=== PATIENT | female | born 1950 | race Caucasian/White ===

== ENCOUNTER 2023-10-18 13:23 | Inpatient (IN) | payer MEDICARE, SELFPAY ==
--- NOTE | 2023-10-18 12:17 | HPS.HSE ---
Family Physician
-
Family Physician: Christopher Braswell, DO
Chief Complaint
-
rectal prolapse
History of Present Illness
73yo female admitted for a colonoscopy and bowel prep prior to surgery. Her main complaint is rectal prolapse. She went to the ER at [place] for the 'hemorrhoids' and was told that she has a rectal prolapse. The patient admits that there is tissue that
comes out 'all the time '. She admits to bleeding and mucus from the area particular in the last several weeks. She feels that it is getting worse. She feels that it started in May. The patient has no prior history of abdominal surgeries. She
admits to lack of bowel control and bowel accidents since May. She denies any history of constipation or straining or pelvic floor issues. No prior colonoscopies. Her bowel movements are daily 'every day all day '. Denies tissue coming from her
vagina. When it does come out she has a hard time pushing it back in. She has used sugar before. She has a history of back surgery but no abdominal surgery. On baby aspirin. Takes oxycodone for back issues. She is wheelchair-bound and has been this
way for 3 years. She cannot walk. Family history negative for colorectal issues.
Medical History
Past Medical History
Past Medical History: Reports HTN and Other (chronic pain, scoliosis, DM II, depression, anxiety, neuropathy, - May 2023)
Past Surgical History: Reports Orthopedic (closed reduction of b/l proximal tibia fractures, lumbar discectomy, right piriformis release, spinal stimulator implant)
Social History
Tobacco: Non-smoker
Alcohol: None
Drug: None
Family History
Family History: Not pertinent
Allergies / Home Medications
Allergies reflects when Allergies were last updated in [facility].
Home Medications with original date entered in [facility]
Allergy/Medication List:
Allergies:
Penicillin- swelling
Cipro- itching
Medications:
Aspirin 81(Aspirin) 81 MG Tablet Delayed Release 1 tablet Orally Once a day
Atorvastatin Calcium 80 MG Tablet 1 tablet Orally Once a day
Carvedilol 12.5 MG Tablet 1 tablet with food Orally Twice a day
Donepezil HCl 10 MG Tablet Disintegrating 1 tablet on the tongue and allow to dissolve at bedtime Orally Once a day
Januvia(SITagliptin Phosphate) 100 MG Tablet 1 tablet Orally Once a day
Lyrica(Pregabalin) 200 MG Capsule 1 capsule 1 to 3 hours before bedtime Orally Once a day
Magnesium 300 MG Capsule 1 capsule with a meal Orally Once a day
MiraLax Mix-In [place](Polyethylene Glycol 3350) 17 GM Packet 1 packet mixed with 8 ounces of fluid Orally Once a day
Morphine Sulfate 15 MG Tablet 1 tablet as needed Orally every 4 hrs
Norvasc(amLODIPine Besylate) 5 MG Tablet 1 tablet Orally Once a day
Oxycodone HCl 5 MG Tablet 1 tablet as needed Orally po bid prn
Pantoprazole Sodium 40 MG Tablet Delayed Release 1 tablet Orally Once a day
Pregabalin 200 MG Capsule 1 capsule 1 to 3 hours before bedtime Orally Once a day
Senokot(Sennosides) 8.6 MG Tablet 2 tablets at bedtime as needed Orally Once a day
Trintellix(Vortioxetine HBr) 5 MG Tablet 1 tablet Orally Once a day
Review of Systems
-
History Source: Patient
A 12 point ROS was completed and negative except as noted: Yes
Abdomen/GI: Reports Bloody Stools and Other (rectal prolapse, incontinence)
Physical Exam
Physical Exam
General: Well Developed and Well Nourished
HEENT: NormoCephalic and Anicteric
GI: Soft, Non Tender and Non Distended
Skin: Warm
Neuro: AO x 3
Laboratory Results
-
Laboratory results are ordered and pending
Data Reviewed
-
Old Records: Reviewed
Impression/Plan
-
IMPRESSION: 73yo female with rectal prolapse
PLAN:
1. Admit to medical surgical floor.
2. Clear liquids today, NPO at midnight. Start IVFs when NPO.
3. Colonoscopy tomorrow. OR on , 10/20/2023 for Altemeier Procedure. Bowel prep to start luanne.
4. OOB in wheelchair with PT.
5. Medical consult for medicine management, DM, HTN.
6. Case management for dispo planning.
7. CBC/BMP, PT/INR, type and screen ordered.
8. EKG prior to surgery.
[2023-10-18 13:57] LABS: % Basophils 1.6 % (0-2); % Eosinophils 1.8 % (0-6); % Immature Granulocytes 0.4 % (0-0.5); % Lymphocytes 19.4 % (20.5-51.1); % Monocytes 7.3 % (1.7-9.3); % Neutrophils 69.5 % (42.2-75.2); Absolute Basophils 0.1 10^3/uL (0-0.2); Absolute Eosinophils 0.1 10^3/uL (0-0.7); Absolute Lymphocytes 1.5 10^3/uL (1.2-3.4); Absolute Monocytes 0.6 10^3/uL (0.1-0.6); Absolute Neutrophils 5.5 10^3/uL (1.4-6.5); Hematocrit 42.7 % (37.0-47.0); Hemoglobin 14.8 g/dL (12.0-16.0); Mean Corp Hgb Conc. 34.7 g/dL (33.0-37.0); Mean Corpuscular Hgb 28.7 pg (27.0-31.0); Mean Corpuscular Volume 82.9 fL (81.0-99.0); Mean Platelet Volume 9.3 fL (7.4-10.4); Nucleated Red Blood Cells % 0 %; Platelet Count 321 10^3/uL (130-400); Red Blood Cell Count 5.15 10^6/uL (4.20-5.40); Red Cell Dist. Width 13.7 % (11.5-14.5); White Blood Cell Count 7.9 10^3/uL (4.8-10.8)
[2023-10-18 14:08] LABS: APTT 30.6 Sec (23.4-35.0); INR 1.03; PT 13.3 Sec (11.4-14.6)
[2023-10-18 14:14] LABS: Blood Urea Nitrogen 12 mg/dl (7-17); Calcium 9.9 mg/dl (8.4-10.2); Carbon Dioxide 24 mmol/L (22-30); Chloride 106 mmol/L (98-107); Glucose 109 mg/dl (70-99); Potassium 4.6 mmol/L (3.5-5.1); Sodium 136 mmol/L (135-145); eGFR > 60.00
[2023-10-18 14:28] LABS: Glycohemoglobin (HgbA1c) 6.2 % (4.0-5.6)
--- NOTE | 2023-10-18 14:31 | CON.HOSP ---
Addendum entered and electronically signed by Dora Renteria MD 10/18/23 18:00:
I saw and examined the patient.
The SYSTEM DISPATCHER or PA's note was reviewed and I agree with the note.
Comment:
73F Chronic Pain Scoliosis spinal stimulator implant chronic opiate use Hypotension on low dose Midodrine hx b/l tibia fractures s/p ORIF wheelchair bound past 3 years reported hx DM present for Rectal Prolapse repair direct admit as per CRS.�
Hospitalist service consulted to assist in medical mgmt.
Physical Exam
General: No pallor, cyanosis, or jaundice.
HEENT: Throat clear. PERRLA Normocephalic atraumatic
NECK: Supple. No JVD Carotid Bruits
RESPIRATORY: Lungs clear to auscultation. No crackles wheezes stridor
CVS: S1, S2 normal. RRR.� No murmur, rub or gallop.
ABDOMEN: Soft, non-tender. No distension. Hypoactive bowel sounds
EXTREMITIES: No peripheral cyanosis or edema.� Able to lift legs off bed
APPRAISAL ANALYST: AOx3.
#Rectal Prolapse
Mgmt. as per primary CRS
-Npo after midnight for Colonoscopy
-Surgical correction Prolapse planned for day after
#Chronic Pain
Cont home oral pain medication for today
Switch to Fentanyl patch tomorrow when NPO including meds as per Surgery
IV dilaudid prn
#reported hx DM
Not on diabetic medications for years
A1c appreciated 6.2 prediabetic
Ok to monitor off FS at this time
Can consider low dose sliding scale if significant hyperglycemia develops.
#Hypotension on scheduled midodrine
BP currently stable
Cont home po midodrine as able
IVF boluses prn SBP<90 or MAP <65
will consider escalated care if significant/symptomatic hypotension develops
Original Note:
Consultation
-
Date/Time Consultation Requested: October 18, 2023 at 13:46
Date/Time Consultation Performed: October 18, 2023 at 14:33
Requesting Provider: Indy Sigala PA-C
Performing Provider: Radha Guthrie PA-C for Dr. Dora Renteria
Reason for Consultation: Medical Management
Family Physician
-
Family Physician: Christopher Braswell DO
Chief Complaint
-
Medical Management
History of Present Illness
Patient is a 73 y/o female past medical history of chronic pain and hypotension who is presenting for a scheduled colonoscopy and repair fo rectal prolapse. Patient is maintained on MS Contin for her chronic pain. She notes she has not taken
diabetes medications for several years. Hospitalist group was consult for medical management.
Medical History
Past Medical History
Past Medical History: Reports Other
Additional Past Medical History:
Chronic Pain with Opioid Dependence
Chronic Hypotension
Diabetes Mellitus, Type II
Cognitive Impairment
Depression / Anxiety
Past Surgical History: Reports Other
Additional Past Surgical History:
Lumbar Discectomy
Spinal Stimulator Implant
Social History
Tobacco: Former Smoker
Family History
Family History: Reviewed & Not Pertinent
Allergies / Home Medications
Allergies reflects when Allergies were last updated in [facility].
Home Medications with original date entered in [facility]
Allergy/Medication List:
Allergies
Allergy/AdvReac Type Severity Reaction Status Date / Time
ciprofloxacin [From Cipro] Allergy Unknown Verified 08/29/21 17:23
Penicillins Allergy Anaphylaxis Verified 08/29/21 17:23
Home Medications
magnesium oxide 400 mg PO DAILY Supplement 08/29/21
pregabalin 200 mg capsule (Lyrica) 200 mg PO BID Neurological Condition #6 caps 09/01/21
atorvastatin 10 mg tablet 10 mg PO HS 10/18/23
donepezil 10 mg tablet 10 mg PO HS 10/18/23
midodrine 2.5 mg tablet 2.5 mg PO TID 10/18/23
morphine 15 mg tablet,extended release 15 mg PO BID Pain 10/18/23
oxycodone 5 mg tablet 5 mg PO Q4HPRN PRN moderate to severe pain 10/18/23
vortioxetine 5 mg tablet (Trintellix) 5 mg PO DAILY 10/18/23
Review of Systems
-
A 12 point Review of Systems was completed except as noted: Yes
Physical Exam
Physical Exam
General: Well Developed, Well Nourished and Comfortable
HEENT: Anicteric and Moist Mucous Membranes
Respiratory: Clear and Non Labored Respirations
Cardiac: S1/S2 and Regular Rhythm
GI: Soft and Non Tender
Rectal: Deferred by Provider
Musculoskeletal: No Clubbing and No Cyanosis
Skin: Warm and Dry
Neuro: Awake, Alert and Oriented
Psych: Calm
Laboratory Results
-
Laboratory Results
10/18/23 13:45
10/18/23 13:45
PT 13.3 Sec (11.4-14.6) 10/18/23 13:45
INR 1.03 10/18/23 13:45
APTT 30.6 Sec (23.4-35.0) 10/18/23 13:45
Data Reviewed
-
Lab Data: Labs Reviewed
Old Records: Reviewed
Impression / Plan
-
Rectal Prolapse
-Care as per Colorectal Surgery
-Patient will be NPO starting tomorrow morning for procedure
Chronic Pain with Opioid Dependence
-Give usual dose of Morphine ER this evening
-Start Fentanyl Patch tomorrow morning
-Use Dilaudid IV for breakthrough
-Resume oral meds when able
Chronic Hypotension
-Hold midodrine
-Monitor BP closely
Diabetes Mellitus, Type II
-Patient does not take any diabetes medications as outpatient
-Check HgbA1c
Cognitive Impairment
-Patient maintained on donepezil as outpatient
Depression / Anxiety
-Resume oral meds when able
DVT proph: SCDs
--- NOTE | 2023-10-18 14:35 | PTCARENOTE ---
Patient admitted from home for a colonoscopy prep and surgery on .She is alert and oriented x3.Patient is wheelchair bound.She is treated for chronic pain.Will start the prep as soon as ordered.The patient is in her bed with the call padilla in
reach.
[2023-10-18 15:05] VITALS: BP 101/55
[2023-10-18] MEDS: NULYTELY SOLUTION 4 LITERS PO (15:12)
[2023-10-18] MEDS: MS CONTIN (EXTENDED RELEASE) 15 MG PO (20:57)
[2023-10-18] MEDS: LYRICA 200 MG PO (20:57)
[2023-10-18] MEDS: ARICEPT 10 MG PO (21:55)
[2023-10-18] MEDS: LIPITOR 10 MG PO (21:55)
[2023-10-19] VITALS (7 sets, daily range): BP systolic 121–159; BP diastolic 59–82; BMI 24.8
[2023-10-19] MEDS: NSS 1000 IV ×2 (00:19→15:31)
--- NOTE | 2023-10-19 01:00 | PTCARENOTE ---
Patient completed Colyte prep at 00:20; patient now NPO; clear bowel movements began at 01:00.
[2023-10-19] MEDS: DILAUDID 0.25 MG IV (01:30)
[2023-10-19 06:40] LABS: Hematocrit 42.4 % (37.0-47.0); Hemoglobin 14.5 g/dL (12.0-16.0); Mean Corp Hgb Conc. 34.2 g/dL (33.0-37.0); Mean Corpuscular Hgb 28.8 pg (27.0-31.0); Mean Corpuscular Volume 84.1 fL (81.0-99.0); Red Blood Cell Count 5.04 10^6/uL (4.20-5.40); Red Cell Dist. Width 13.5 % (11.5-14.5); White Blood Cell Count 6.4 10^3/uL (4.8-10.8)
--- NOTE | 2023-10-19 07:01 | W.PN.HOSP.TC ---
Today's Communication/Plan
-
NPO colonoscopy today as per CRS
pain control
monitor bp
follow up repeat EKG
Assessment / Plan
Assessment / Plan
Physical Exam
General: No pallor, cyanosis, or jaundice.
HEENT: Throat clear. Normocephalic atraumatic. Some pupil asymmetry noted, right larger then left, reactive to light (patient reports b/l cataracts R worse than left) otherwise pupils not significantly dilated at this time
NECK: Supple. No JVD Carotid Bruits
RESPIRATORY: Lungs clear to auscultation. No crackles wheezes stridor
CVS: S1, S2 normal. RRR.� No murmur, rub or gallop.
ABDOMEN: Soft, non-tender. No distension. Hypoactive bowel sounds
EXTREMITIES: No peripheral cyanosis or edema.� Able to lift legs off bed
NAILER OPERATOR: AOx3
73F Chronic Pain Scoliosis spinal stimulator implant chronic opiate use Hypotension on low dose Midodrine hx b/l tibia fractures s/p ORIF wheelchair bound past 3 years reported hx DM present for Rectal Prolapse repair direct admit as per CRS.�
Hospitalist service consulted to assist in medical mgmt.
Rectal Prolapse
-Care as per Colorectal Surgery
-strict NPO for colonoscopy today as per CRS
Chronic Pain with Opioid Dependence
-Received usual dose of Morphine ER last evening
-agree CRS scheduled morphine IV while strict NPO, can consider switch to Fentanyl patch low dose
-Dilaudid IV prn
-Resume home oral pain meds when able
hx Chronic Hypotension on scheduled low dose midodrine at home
-Monitor BP
-midodrine does not appear necessary at this time.
-ordered home midodrine prn for now when oral meds permitted as per CRS
Reported hx Diabetes Mellitus, Type II
-Patient does not take any diabetes medications as outpatient
-HgbA1c appreciated 6.2 Prediabetic
-ok to monitor off routine FS at this time.
Cognitive Impairment
-Patient maintained on donepezil as outpatient
Depression / Anxiety
-Resume oral meds when able
-Iv ativan prn anxiety
initial EKG notes septal infarct age indeterminate
-no chest pain
-repeating EKG
DVT proph: SCDs
I spent a total of 50 minutes with the patient or on the floor. More than 50% of this time involved counseling and coordination of care.
Anticipated Discharge: > 48 hours
Subjective/Interval History
-
Date of Service: October 19, 2023
No acute distress resting comfortably in bed sleeping. Easily woken. Reports back pain 01/27. Denies nausea.
Objective Data
-
Labs:
Laboratory Results
10/19/23
06:18
WBC 6.4
Hgb 14.5
Hct 42.4
Plt Count Pending
Sodium Pending
Potassium Pending
Chloride Pending
Carbon Dioxide Pending
BUN Pending
Creatinine Pending
Glucose Pending
Calcium Pending
Vital Signs:
Vital Signs
Temp Pulse Resp BP Pulse Ox
97.9 F 51 16 159/70 98
10/19/23 01:20 10/19/23 01:20 10/19/23 01:20 10/19/23 01:20 10/19/23 01:20
I&O
10/18/23 10/19/23 10/20/23
06:59 06:59 06:59
Intake Total 3405 / 3405
Balance 3405 / 3405
[2023-10-19 07:03] LABS: Blood Urea Nitrogen 7 mg/dl (7-17); Calcium 9.4 mg/dl (8.4-10.2); Carbon Dioxide 22 mmol/L (22-30); Chloride 110 mmol/L (98-107); Glucose 96 mg/dl (70-99); Magnesium 2.1 mg/dl (1.6-2.3); Phosphorus 4.6 mg/dl (2.5-4.5); Potassium 4.1 mmol/L (3.5-5.1); Sodium 136 mmol/L (135-145); eGFR > 60.00
[2023-10-19] MEDS: LYRICA PO (07:22)
[2023-10-19] MEDS: MORPHINE SULFATE 2 MG IV ×4 (08:19→20:52)
--- NOTE | 2023-10-19 09:13 | WOUNDNOTE ---
R 2ND TOE (DORSAL)
--- NOTE | 2023-10-19 09:14 | WOUNDNOTE ---
R 2ND TOE (with photo flash)
--- NOTE | 2023-10-19 09:15 | WOUNDNOTE ---
[facility] RN note: Patient admitted with rectal prolapse. Patient lives with her son. She is wheelchair bound. She stated she gets herself into her wheelchair with a sliding board and that she has a foam chair cushion. Patient current with Uday CRAWFORD.
See H&P for complete history.
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 No purulence. Patient reports toe ulcer is improved
compared to before. She stated she regularly goes to [facility] wound care center. She stated her wound was previously treated with antibiotics. She thinks she's had the wound for almost 1 year. +Palpable pedal pulses. Trace-+1 LE edema. She
stated she wears Tubigrip at home. L heel red/scarred from previous ulcer. Coccyx/R buttocks with scar from a previous full thickness wound.
Appetite: currently NPO for colonoscopy today.
Pressure redistribution devices in place: [employer] Accumax. Patient turns herself in bed.
Plan: R 2nd toe dressing changed (patient stated honey gel and Band-Aide is the current wound care). Patient voided in bedpan. Marisa care given. Instructed patient pressure injury prevention measures. She stated she uses a heel boot in bed at home.
Heels off bed with air chair cushion. Patient declined soft heel relief boot. Updated MARIA GUADALUPE Alvarez re: R 2nd dorsal toe ulcer appearance with erythema. Indy view wound photo. Defer to Indy if x-ray R 2nd toe to r/t osteomyelitis wanted vs
follow up with her outpatient wound care center physician to manage. Patricia approved local wound care. Discussed with JOE Li.
Care plan to be updated and will follow as needed.
--- NOTE | 2023-10-19 09:16 | W.PN.UPDATE ---
Update Note
Progress Note Update
I saw patient at bedside this morning. She has had clear bowel movements since 1am. She has no complaints. She remains NPO for colonoscopy today.
--- NOTE | 2023-10-19 09:17 | WOUNDNOTE ---
Radha DE SOUZA
--- NOTE | 2023-10-19 09:17 | WOUNDNOTE ---
Radha DE SOUZA
--- NOTE | 2023-10-19 09:17 | WOUNDNOTE ---
R HEEL (with photo flash)
--- NOTE | 2023-10-19 12:38 | CM ---
Reviewed the chart notes and spoke with the patient at the bedside. The patient is scheduled for a colonoscopy today and for rectal prolapse repair tomorrow. The patient resides with her son in a one story home with a ramp to enter. The patient
is wheelchair bound. The patient has a walker, shower chair and grab bars in the home. The patient has had [facility] in the past and been to [facility] in the past. The patient confirmed her pharmacy of choice is the [facility].
[facility] continues to be available to patient/family and is monitoring medical plan for needs at discharge.
Plan: Discharge plans will depend on the patient's progress.
--- NOTE | 2023-10-19 13:26 | W.PN.UPDATE ---
Update Note
Progress Note Update
Colonoscopy complete. Diminished anal tone. Prep reasonable. One small benign appearing cecal polyp--removed. Clears today and npo after MN. OR tomorrow.
[2023-10-19 13:48] LABS: Glucose - Point of Care 114 mg/dl (70-99)
--- NOTE | 2023-10-19 14:21 | PTCARENOTE ---
Pt returned to 2S via stretcher, slid to bed with assistance from NSG staff. IVF infusing per order. Pt awake and alert, verbalized understanding of clear liquid diet for today and then NPO after midnight for sx tomorrow. Bed locked and in the
lowest position, safety maintained. Oriented to room and call padilla.
[2023-10-19] MEDS: LIPITOR 10 MG PO (20:51)
[2023-10-19] MEDS: LYRICA 200 MG PO (20:51)
[2023-10-19] MEDS: ARICEPT 10 MG PO (20:52)
[2023-10-20] VITALS (12 sets, daily range): BP systolic 121–140; BP diastolic 61–99
[2023-10-20] MEDS: MORPHINE SULFATE 2 MG IV ×6 (00:34→23:50)
[2023-10-20] MEDS: NSS 1000 IV ×3 (05:30→23:50)
--- NOTE | 2023-10-20 06:49 | W.PN.HOSP.TC ---
Today's Communication/Plan
-
NPO for rectal repair today as per primary CRS
BP stable, can consider converting home midodrine to prn when ready for discharge, vs discontinuing entirely
cont pain control
PT eval
Assessment / Plan
Assessment / Plan
Physical Exam
General: No pallor, cyanosis, or jaundice.
HEENT: Throat clear. Normocephalic atraumatic. Some pupil asymmetry noted, right larger then left, reactive to light (patient reports b/l cataracts R worse than left) otherwise pupils not significantly dilated at this time
NECK: Supple. No JVD Carotid Bruits
RESPIRATORY: Lungs clear to auscultation. No crackles wheezes stridor
CVS: S1, S2 normal. RRR.� No murmur, rub or gallop.
ABDOMEN: Soft, non-tender. No distension. Hypoactive bowel sounds
EXTREMITIES: No peripheral cyanosis or edema.� Able to lift legs off bed
MEDICAL REPRESENTATIVE: AOx3
73F Chronic Pain Scoliosis spinal stimulator implant chronic opiate use Hypotension on low dose Midodrine hx b/l tibia fractures s/p ORIF wheelchair bound past 3 years reported hx DM present for Rectal Prolapse repair direct admit as per CRS.�
Hospitalist service consulted to assist in medical mgmt.
Rectal Prolapse
-Care as per Colorectal Surgery
-colonoscopy completed 10/18 one 2 mm cecum polyp removed pathology result pending
-npo for rectal prolapse repair today 10/19 as per CRS
Chronic Pain with Opioid Dependence
-agree CRS scheduled morphine IV while strict NPO
-Dilaudid IV prn
-Resume home oral pain meds when able
hx Chronic Hypotension on scheduled low dose midodrine at home
-Monitor BP
-midodrine does not appear necessary at this time.
-ordered home midodrine prn for now when oral meds permitted as per CRS
-on discharge would consider changing home midodrine to prn as well vs discontinuing entirely
Reported hx Diabetes Mellitus, Type II
-Patient does not take any diabetes medications as outpatient
-HgbA1c appreciated 6.2 Prediabetic
-ok to monitor off routine FS at this time.
Cognitive Impairment
-Patient maintained on donepezil as outpatient
Depression / Anxiety
-Resume oral meds when able
-Iv ativan prn anxiety
initial EKG notes septal infarct age indeterminate
-no chest pain
-repeating EKG
DVT proph: SCDs
I spent a total of 50 minutes with the patient or on the floor. More than 50% of this time involved counseling and coordination of care.
Anticipated Discharge: 24 - 48 hours
Subjective/Interval History
-
Date of Service: October 20, 2023
No acute distress reports feeling well pain well controlled at this time. overall reports feeling well.
Objective Data
-
Labs:
Laboratory Results
10/20/23
06:18
WBC Pending
Hgb Pending
Hct Pending
Plt Count Pending
Sodium Pending
Potassium Pending
Chloride Pending
Carbon Dioxide Pending
BUN Pending
Creatinine Pending
Glucose Pending
Calcium Pending
Vital Signs:
Vital Signs
Temp Pulse Resp BP Pulse Ox
99.1 F 66 18 144/70 98
10/19/23 23:20 10/19/23 23:20 10/19/23 23:20 10/19/23 23:20 10/19/23 23:20
I&O
10/18/23 10/19/23 10/20/23
06:59 06:59 06:59
Intake Total 3405 / 3405 1859
Balance 3405 / 3405 1859
[2023-10-20 06:50] LABS: % Basophils 1.9 % (0-2); % Eosinophils 2.5 % (0-6); % Immature Granulocytes 0.4 % (0-0.5); % Lymphocytes 19.3 % (20.5-51.1); % Monocytes 10.3 % (1.7-9.3); % Neutrophils 65.6 % (42.2-75.2); Absolute Basophils 0.1 10^3/uL (0-0.2); Absolute Eosinophils 0.1 10^3/uL (0-0.7); Absolute Monocytes 0.5 10^3/uL (0.1-0.6); Absolute Neutrophils 3.4 10^3/uL (1.4-6.5); Hematocrit 38.5 % (37.0-47.0); Mean Corp Hgb Conc. 33.8 g/dL (33.0-37.0); Mean Corpuscular Hgb 28.5 pg (27.0-31.0); Mean Corpuscular Volume 84.4 fL (81.0-99.0); Mean Platelet Volume 9.6 fL (7.4-10.4); Nucleated Red Blood Cells % 0 %; Platelet Count 220 10^3/uL (130-400); Red Blood Cell Count 4.56 10^6/uL (4.20-5.40); Red Cell Dist. Width 13.4 % (11.5-14.5); White Blood Cell Count 5.1 10^3/uL (4.8-10.8)
[2023-10-20] MEDS: HEPARIN 5000 UNITS SC (07:09)
[2023-10-20] MEDS: NEURONTIN 600 MG PO (07:10)
[2023-10-20] MEDS: TYLENOL 1000 MG PO (07:10)
[2023-10-20 07:14] LABS: Blood Urea Nitrogen 4 mg/dl (7-17); Calcium 9.1 mg/dl (8.4-10.2); Carbon Dioxide 21 mmol/L (22-30); Chloride 110 mmol/L (98-107); Estimated Creatinine Clearance 81 ml/min; Glucose 95 mg/dl (70-99); Magnesium 1.9 mg/dl (1.6-2.3); Phosphorus 4.3 mg/dl (2.5-4.5); Potassium 3.6 mmol/L (3.5-5.1); Sodium 136 mmol/L (135-145); eGFR > 60.00
[2023-10-20] MEDS: LYRICA 200 MG PO ×2 (08:48→21:14)
--- NOTE | 2023-10-20 13:12 | CM ---
Reviewed the chart notes. Patient anticipated to go to OR for rectal prolapse repair today. CM continues to be available to patient/family and is monitoring medical plan for needs at discharge.
Plan: Discharge plans will depend on the patient's progress.
[2023-10-20] MEDS: MORPHINE SULFATE IV (13:13)
[2023-10-20 14:50] LABS: Glucose - Point of Care 146 mg/dl (70-99)
--- NOTE | 2023-10-20 14:56 | W.IMMPOSTOP ---
Addendum entered and electronically signed by Randy Fulton MD 10/20/23 15:02:
Patient's son, Garcia, updated via phone conversation.
Original Note:
Surgical Immed Post Op Note
-
Primary Surgeon: Carleen Fulton MD
Assisting Surgeon: Caleb Muir MD
Pre-op Diagnosis: 1) rectal prolapse 2) fecal incontinence
Post-op Diagnosis: same
Procedure Performed: 1) Altemeier procedure (perineal rectosigmoidectomy) 2) posterior levatoroplasty
Anesthesia Type: general plus local
Specimen / Cultures: rectum
Estimated Blood Loss: 25 cc
Complications: no immediate
Operative Findings: redundant rectosigmoid and weak anal sphincter
Paredes in bladder.
Will send back to med surg.
--- NOTE | 2023-10-20 16:01 | PTCARENOTE ---
Pt returned back to 2S in bed. Paredes catheter clean and intact, draining yellow urine. IVF infusing per order. Scheduled pain medication provided for chronic back pain. Pt with no other c/o pain at this time. Bed locked and in the lowest position,
safety maintained. Oriented to room and call padilla, son at bedside.
[2023-10-20] MEDS: ARICEPT 10 MG PO (21:14)
[2023-10-20] MEDS: LIPITOR 10 MG PO (21:14)
[2023-10-20] MEDS: ATIVAN 0.25 MG IV (21:37)
[2023-10-20] MEDS: NSS (PRESERVATIVE FREE) 0.125 ML IV (21:39)
[2023-10-21] MEDS: DILAUDID 0.25 MG IV (00:36)
[2023-10-21 03:15] VITALS: BP 103/53
[2023-10-21] MEDS: MORPHINE SULFATE 2 MG IV ×5 (03:58→21:25)
[2023-10-21 05:08] VITALS: BMI 22.7
[2023-10-21 06:31] LABS: % Basophils 0.2 % (0-2); % Immature Granulocytes 0.3 % (0-0.5); % Lymphocytes 5.4 % (20.5-51.1); % Monocytes 7.8 % (1.7-9.3); % Neutrophils 86.3 % (42.2-75.2); Absolute Lymphocytes 0.5 10^3/uL (1.2-3.4); Absolute Monocytes 0.7 10^3/uL (0.1-0.6); Absolute Neutrophils 7.7 10^3/uL (1.4-6.5); Hematocrit 38.1 % (37.0-47.0); Hemoglobin 12.7 g/dL (12.0-16.0); Mean Corp Hgb Conc. 33.3 g/dL (33.0-37.0); Mean Corpuscular Hgb 28.5 pg (27.0-31.0); Mean Corpuscular Volume 85.4 fL (81.0-99.0); Nucleated Red Blood Cells % 0 %; Platelet Count 231 10^3/uL (130-400); Red Blood Cell Count 4.46 10^6/uL (4.20-5.40); Red Cell Dist. Width 13.5 % (11.5-14.5); White Blood Cell Count 8.9 10^3/uL (4.8-10.8)
--- NOTE | 2023-10-21 06:58 | W.PN.HOSP.TC ---
Today's Communication/Plan
-
NPO/Diet as per CRS
pain control
PT eval
Assessment / Plan
Assessment / Plan
Physical Exam
General: No pallor, cyanosis, or jaundice.
HEENT: Throat clear. Normocephalic atraumatic. Some pupil asymmetry noted, right larger then left, reactive to light (patient reports b/l cataracts R worse than left) otherwise pupils not significantly dilated at this time
NECK: Supple. No JVD Carotid Bruits
RESPIRATORY: Lungs clear to auscultation. No crackles wheezes stridor
CVS: S1, S2 normal. RRR.� No murmur, rub or gallop.
ABDOMEN: Soft, non-tender. No distension. Hypoactive bowel sounds
EXTREMITIES: No peripheral cyanosis or edema.� Able to lift legs off bed
COLLEGE OR UNIVERSITY FACULTY MEMBER: AOx3
73F Chronic Pain Scoliosis spinal stimulator implant chronic opiate use Hypotension on low dose Midodrine hx b/l tibia fractures s/p ORIF wheelchair bound past 3 years reported hx DM present for Rectal Prolapse repair direct admit as per CRS.�
Hospitalist service consulted to assist in medical mgmt.
Rectal Prolapse
-Care as per Colorectal Surgery
-colonoscopy completed 10/18 one 2 mm cecum polyp removed pathology result pending
-s/p rectal prolapse repair 10/19
-NPO/diet as per CRS
Chronic Pain with Opioid Dependence
-agree CRS scheduled morphine IV while strict NPO
-Dilaudid IV prn
-Resume home oral pain meds when able
hx Chronic Hypotension on scheduled low dose midodrine at home
-Monitor BP
-midodrine does not appear necessary at this time.
-ordered home midodrine prn for now when oral meds permitted as per CRS
-on discharge would consider changing home midodrine to prn as well vs discontinuing entirely
Reported hx Diabetes Mellitus, Type II
-Patient does not take any diabetes medications as outpatient
-HgbA1c appreciated 6.2 Prediabetic
-ok to monitor off routine FS at this time.
Cognitive Impairment
-Patient maintained on donepezil as outpatient
Depression / Anxiety
-Resume oral meds when able
-Iv ativan prn anxiety
initial EKG notes septal infarct age indeterminate
-no chest pain
-repeating EKG
DVT proph: SCDs
I spent a total of 50 minutes with the patient or on the floor. More than 50% of this time involved counseling and coordination of care.
Anticipated Discharge: 24 - 48 hours
Subjective/Interval History
-
Date of Service: October 21, 2023
No acute distress reports feeling well. Denies new acute issues.
Objective Data
-
Labs:
Laboratory Results
10/21/23
05:01
WBC Pending
Hgb Pending
Hct Pending
Plt Count Pending
Sodium Pending
Potassium Pending
Chloride Pending
Carbon Dioxide Pending
BUN Pending
Creatinine Pending
Glucose Pending
Calcium Pending
Vital Signs:
Vital Signs
Temp Pulse Resp BP Pulse Ox
99.1 F 79 18 103/53 93
10/21/23 03:15 10/21/23 03:15 10/21/23 03:15 10/21/23 03:15 10/21/23 03:15
I&O
10/19/23 10/20/23 10/21/23
06:59 06:59 06:59
Intake Total 3405 / 3405 1860 / 1860 900 / 900
Output Total 900 / 900
Balance 3405 / 3405 1860 / 1860 0 / 0
[2023-10-21 07:00] VITALS: BP 113/64
[2023-10-21 07:07] LABS: Blood Urea Nitrogen 7 mg/dl (7-17); Calcium 9.2 mg/dl (8.4-10.2); Carbon Dioxide 20 mmol/L (22-30); Chloride 110 mmol/L (98-107); Estimated Creatinine Clearance 81 ml/min; Glucose 107 mg/dl (70-99); Magnesium 2.1 mg/dl (1.6-2.3); Phosphorus 4.5 mg/dl (2.5-4.5); Potassium 3.7 mmol/L (3.5-5.1); Sodium 138 mmol/L (135-145); eGFR > 60.00
[2023-10-21] MEDS: LYRICA 200 MG PO ×2 (08:24→21:25)
--- NOTE | 2023-10-21 10:00 | W.PN.CRS1 ---
Addendum entered and electronically signed by Jeanmarie Muir MD 10/21/23 10:55:
Correction to statement: *Hb 12.7 from 13.0
Original Note:
Today's Communication / Plan
-
clears
lovenox
OOB with PT
Assessment/Plan
-
POD#1 1) Altemeier procedure (perineal rectosigmoidectomy) 2) posterior levatoroplasty
1. Vitals and labs normal.
2. OOB with PT.
3. Continue hull until AM.
4. DVT prophylaxis: TEDS/SCDS, Lovenox added.
5. Pain control: Dilaudid 0.25mg IV q 4 PRN, Moprhine 2mg IV q4h, will convert to po home meds likely tomorrow if tolerating clears.
6. Appreciate hospitalist.
7. Advance diet to clears.
8. OR pathology pending.
Subjective Data
Procedure
10/20/2023- 1) Altemeier procedure (perineal rectosigmoidectomy) 2) posterior levatoroplasty
Subjective Data
Date of Service: October 21, 2023
Patient states she feels well. She denies nausea or vomiting. She is hungry. She has back pain which is chronic for her. She denies abdominal pain. She has no flatus or BMs yet.
Objective Data
-
Vital Signs
Temp Pulse Resp BP Pulse Ox
98.5 F 69 14 113/64 95
10/21/23 07:00 10/21/23 07:00 10/21/23 07:00 10/21/23 07:00 10/21/23 07:00
Intake & Output
10/20/23 10/21/23 10/22/23
06:59 06:59 06:59
Intake Total 1860 / 1860 900 / 900
Output Total 900 / 900
Balance 1860 / 1860 0 / 0
Intake:
Oral fluids 960 / 960
IV fluids (Total)
IV piggybacks 0 0
Output:
Urine, Hull
Other:
Number of approximated MODERATE 2
amounts of urine
Number of approximated LARGE 1
amounts of urine
Lab Results
10/21/23 05:01
10/21/23 05:01
Physical Exam
-
General: No Acute Distress and AOx3
Abdomen: Soft, Non Distended and Non Tender
Skin: Warm and Dry
[2023-10-21 11:00] VITALS: BP 132/68
[2023-10-21 11:29] VITALS: BP 132/68; PULSE 65
[2023-10-21] MEDS: NSS IV (12:40)
[2023-10-21 13:06] VITALS: BMI 22.7
[2023-10-21 15:00] VITALS: BP 109/55
--- NOTE | 2023-10-21 16:00 | CM ---
Reviewed the chart notes and spoke with the patient at the bedside. IMM signed and placed on chart. No needs anticipated.
Plan: Discharge to home when medically stable.
[2023-10-21] MEDS: LOVENOX 40 MG SC (18:02)
[2023-10-21] MEDS: TORADOL 15 MG IV (19:49)
[2023-10-21] MEDS: TYLENOL 650 MG PO (19:49)
[2023-10-21] MEDS: LIPITOR 10 MG PO (21:25)
[2023-10-21] MEDS: ARICEPT 10 MG PO (21:25)
[2023-10-21] MEDS: ATIVAN 0.25 MG IV (21:32)
[2023-10-21] MEDS: NSS (PRESERVATIVE FREE) 0.125 ML IV (21:33)
[2023-10-21 23:30] VITALS: BP 119/53
[2023-10-22] MEDS: TYLENOL 650 MG PO ×4 (00:03→17:23)
[2023-10-22] MEDS: TORADOL 15 MG IV ×4 (00:04→17:23)
[2023-10-22] MEDS: MORPHINE SULFATE 2 MG IV ×5 (00:04→17:23)
--- NOTE | 2023-10-22 06:38 | W.PN.HOSP.TC ---
Today's Communication/Plan
-
Diet as per primary CRS
pain control
consider Fioricet if headache persists
Replete Potassium
Protonix GI ppx
Assessment / Plan
Assessment / Plan
Physical Exam
General: No pallor, cyanosis, or jaundice.
HEENT: Throat clear. Normocephalic atraumatic. Some pupil asymmetry noted, right larger then left, reactive to light (patient reports b/l cataracts R worse than left) otherwise pupils not significantly dilated at this time
NECK: Supple. No JVD Carotid Bruits
RESPIRATORY: Lungs clear to auscultation. No crackles wheezes stridor
CVS: S1, S2 normal. RRR.� No murmur, rub or gallop.
ABDOMEN: Soft, non-tender. No distension. Hypoactive bowel sounds
EXTREMITIES: No peripheral cyanosis or edema.� Able to lift legs off bed
DIRECTOR OUTCOMES: AOx3
73F Chronic Pain Scoliosis spinal stimulator implant chronic opiate use Hypotension on low dose Midodrine hx b/l tibia fractures s/p ORIF wheelchair bound past 3 years reported hx DM present for Rectal Prolapse repair direct admit as per CRS.�
Hospitalist service consulted to assist in medical mgmt.
Rectal Prolapse
-Care as per Colorectal Surgery
-colonoscopy completed 10/18 one 2 mm cecum polyp removed pathology result pending
-s/p rectal prolapse repair 10/19
-NPO/diet as per CRS
Chronic Pain with Opioid Dependence
-agree CRS scheduled morphine IV while strict NPO
-Dilaudid IV prn
-Resume home oral pain meds when able
Headache
-on scheduled Tylenol and Toradol
-consider Fioricet if headache persists
Hypokalemia
monitor and replete as necessary
hx Chronic Hypotension on scheduled low dose midodrine at home
-Monitor BP
-midodrine does not appear necessary at this time.
-ordered home midodrine prn for now when oral meds permitted as per CRS
-on discharge would consider changing home midodrine to prn as well vs discontinuing entirely
Reported hx Diabetes Mellitus, Type II
-Patient does not take any diabetes medications as outpatient
-HgbA1c appreciated 6.2 Prediabetic
-ok to monitor off routine FS at this time.
Cognitive Impairment
-Patient maintained on donepezil as outpatient
Depression / Anxiety
-Resume oral meds when able
-IV ativan prn anxiety
initial EKG notes septal infarct age indeterminate
-no chest pain
-repeated EKG notes no significant change from initial
PT eval appreciated home PT vs no needs
DVT proph: Lovenox as per primary
GI ppx Protonix
I spent a total of 50 minutes with the patient or on the floor. More than 50% of this time involved counseling and coordination of care.
Anticipated Discharge: 24 - 48 hours
Subjective/Interval History
-
Date of Service: October 22, 2023
no acute distress. Sleeping. Easily woken. Reports headache. Reports flatus but no bowel movement
Objective Data
-
Labs:
Laboratory Results
10/22/23
06:00
WBC Pending
Hgb Pending
Hct Pending
Plt Count Pending
Sodium Pending
Potassium Pending
Chloride Pending
Carbon Dioxide Pending
BUN Pending
Creatinine Pending
Glucose Pending
Calcium Pending
Vital Signs:
Vital Signs
Temp Pulse Resp BP Pulse Ox
98.8 F 61 18 119/53 96
10/21/23 23:30 10/21/23 23:30 10/21/23 23:30 10/21/23 23:30 10/21/23 23:30
I&O
10/20/23 10/21/23 10/22/23
06:59 06:59 06:59
Intake Total 1859 900 / 900 660 / 660
Output Total 900 / 900 425 / 425
Balance 1859 0 / 0 235 / 235
[2023-10-22 06:45] VITALS: BMI 23.3
[2023-10-22 07:09] LABS: Hematocrit 36.7 % (37.0-47.0); Hemoglobin 12.3 g/dL (12.0-16.0); Mean Corp Hgb Conc. 33.5 g/dL (33.0-37.0); Mean Corpuscular Hgb 28.7 pg (27.0-31.0); Mean Corpuscular Volume 85.5 fL (81.0-99.0); Mean Platelet Volume 9.8 fL (7.4-10.4); Platelet Count 186 10^3/uL (130-400); Red Blood Cell Count 4.29 10^6/uL (4.20-5.40); Red Cell Dist. Width 13.7 % (11.5-14.5); White Blood Cell Count 6.3 10^3/uL (4.8-10.8)
[2023-10-22 07:37] LABS: Blood Urea Nitrogen 8 mg/dl (7-17); Calcium 8.7 mg/dl (8.4-10.2); Carbon Dioxide 23 mmol/L (22-30); Chloride 111 mmol/L (98-107); Estimated Creatinine Clearance 81 ml/min; Glucose 86 mg/dl (70-99); Phosphorus 3.6 mg/dl (2.5-4.5); Potassium 3.2 mmol/L (3.5-5.1); Sodium 136 mmol/L (135-145); eGFR > 60.00
[2023-10-22 07:45] VITALS: BP 106/56
[2023-10-22] MEDS: LYRICA 200 MG PO ×2 (07:57→20:18)
[2023-10-22] MEDS: KCL 270 MEQ IV (08:24)
[2023-10-22] MEDS: DILAUDID 0.25 MG IV (09:17)
--- NOTE | 2023-10-22 11:43 | W.PN.CRS1 ---
Addendum entered and electronically signed by Randy Fulton MD 10/22/23 14:13:
I saw and examined the patient.
The LIGHTING TECHNICIAN's note was reviewed and I agree with the note.
Comment:
Seen with PA in am.
Headache. Denied nausea or abdominal/anal discomfort. Some flatus. Tolerated clears.
Tm 100.8 yesterday but AFVSS today. Labs fine except for hypokalemia.
Abdomen soft.
Replacing K.
Diet to fulls.
PT.
Appreciate hospitalist help.
Original Note:
Today's Communication / Plan
-
Advance diet
Pain management
Assessment/Plan
-
73 yo female with h/o rectal prolapse who is POD #2 Altemeier procedure/posterior levatorplasty
AFVSS
Mild hypokalemia, replaced
H/H stable
WC bound at home
Paredes out for voiding trial today
-- Advance to FLD
-- Void trial today
--Trend labs
-- PT following, plan to return home upon d/c
-- Tylenol/Toradol scheduled. Scheduled IV morphine: will d/c and resume home dose of PO 15mg XR formulation with prn PO oxycodone. PRN dilaudid for breakthrough pain.
-- DVT prophylaxis: TEDS/SCDS, Lovenox added.
-- Appreciate hospitalist following with us
Subjective Data
Procedure
10/20/2023- 1) Altemeier procedure (perineal rectosigmoidectomy) 2) posterior levatoroplasty
Subjective Data
Date of Service: October 22, 2023
Patient seen and examined at bedside with Dr. Fulton. Denies n/v. Tolerating clears. Headache this morning. Passing flatus.
Objective Data
-
Vital Signs
Temp Pulse Resp BP Pulse Ox
98.6 F 51 17 106/56 96
10/22/23 07:45 10/22/23 07:45 10/22/23 07:45 10/22/23 07:45 10/22/23 07:45
Intake & Output
10/21/23 10/22/23 10/23/23
06:59 06:59 06:59
Intake Total 900 / 900 660 / 660
Output Total 900 / 900 2835 / 2835
Balance 0 / 0 -2175 / -2175
Intake:
Oral fluids 660 / 660
IV fluids (Total) 900 / 900
IV piggybacks 0 / 0
Output:
Urine, Paredes 900 / 900 1875 / 1875
Urine, Voided 960 / 960
Lab Results
10/22/23 06:50
10/22/23 06:50
Physical Exam
-
General: No Acute Distress and AOx3
Abdomen: Soft, Non Distended and Non Tender
Skin: Warm and Dry
[2023-10-22 15:00] VITALS: BP 117/58
[2023-10-22] MEDS: LOVENOX 40 MG SC (17:23)
[2023-10-22] MEDS: MS CONTIN (EXTENDED RELEASE) 15 MG PO (20:18)
[2023-10-22] MEDS: LIPITOR 10 MG PO (21:15)
[2023-10-22] MEDS: ARICEPT 10 MG PO (21:15)
[2023-10-22 23:34] VITALS: BP 145/76
[2023-10-23] MEDS: TORADOL IV ×4 (00:03→17:06)
[2023-10-23] MEDS: TYLENOL 650 MG PO ×4 (00:03→23:38)
[2023-10-23] MEDS: ROXICODONE 5 MG PO ×3 (00:11→17:05)
[2023-10-23 05:20] LABS: Hematocrit 37.5 % (37.0-47.0); Hemoglobin 13.1 g/dL (12.0-16.0); Mean Corp Hgb Conc. 34.9 g/dL (33.0-37.0); Mean Corpuscular Volume 83.1 fL (81.0-99.0); Mean Platelet Volume 9.8 fL (7.4-10.4); Platelet Count 205 10^3/uL (130-400); Red Blood Cell Count 4.51 10^6/uL (4.20-5.40); Red Cell Dist. Width 13.8 % (11.5-14.5); White Blood Cell Count 6.2 10^3/uL (4.8-10.8)
[2023-10-23 05:44] LABS: Blood Urea Nitrogen 5 mg/dl (7-17); Calcium 8.8 mg/dl (8.4-10.2); Carbon Dioxide 23 mmol/L (22-30); Chloride 109 mmol/L (98-107); Estimated Creatinine Clearance 81 ml/min; Glucose 96 mg/dl (70-99); Magnesium 1.9 mg/dl (1.6-2.3); Phosphorus 3.7 mg/dl (2.5-4.5); Potassium 3.7 mmol/L (3.5-5.1); Sodium 137 mmol/L (135-145); eGFR > 60.00
[2023-10-23] MEDS: FIRST-MOUTHWASH BLM SUSPENSION 5 ML PO (05:53)
--- NOTE | 2023-10-23 06:40 | W.PN.HOSP.TC ---
Today's Communication/Plan
-
Hospitalist Service will sign off
Please re-consult as necessary.
Assessment / Plan
Assessment / Plan
Physical Exam
General: No pallor, cyanosis, or jaundice.
HEENT: Throat clear. Normocephalic atraumatic. ulceration rash tenderness noted left side of head dermal distribution with small ulcerations noted inside left side of mouth and a few around left eye. Patient also notes worsening left eye vision
NECK: Supple. No JVD Carotid Bruits
RESPIRATORY: Lungs clear to auscultation. No crackles wheezes stridor
CVS: S1, S2 normal. RRR.� No murmur, rub or gallop.
ABDOMEN: Soft, non-tender. No distension. Hypoactive bowel sounds
EXTREMITIES: No peripheral cyanosis or edema.
SEED COLLECTOR: AOx3
73F Chronic Pain Scoliosis spinal stimulator implant chronic opiate use Hypotension on low dose Midodrine hx b/l tibia fractures s/p ORIF wheelchair bound past 3 years reported hx DM present for Rectal Prolapse repair direct admit as per CRS.�
Hospitalist service consulted to assist in medical mgmt.
Rectal Prolapse
-Care as per Colorectal Surgery
-colonoscopy completed 10/18 one 2 mm cecum polyp removed pathology result pending
-s/p rectal prolapse repair 10/19
-Diet advanced as per CRS
Shingles Left side of head
Herpes Zoster Ophthalmicus
-ID eval appreciated Valtrex 1 g TID, prednisolone eye drops 1% TID, Ophthalmology Follow up scheduled for tomorrow
Chronic Pain with Opioid Dependence
-home oral pain meds resumed
Hypokalemia
monitor and replete as necessary
hx Chronic Hypotension on scheduled low dose midodrine at home
-Monitor BP
-midodrine does not appear necessary at this time.
-ordered home midodrine prn for now when oral meds permitted as per CRS
-on discharge would consider changing home midodrine to prn as well vs discontinuing entirely (patient has not required during stay)
Reported hx Diabetes Mellitus, Type II
-Patient does not take any diabetes medications as outpatient
-HgbA1c appreciated 6.2 Prediabetic
-ok to monitor off routine FS at this time.
Cognitive Impairment
-Patient maintained on donepezil as outpatient
Depression / Anxiety
-Resume oral meds when able
-IV ativan prn anxiety
initial EKG notes septal infarct age indeterminate
-no chest pain
-repeated EKG notes no significant change from initial
PT eval appreciated home PT vs no needs
DVT proph: Lovenox as per primary
GI ppx Protonix
I spent a total of 50 minutes with the patient or on the floor. More than 50% of this time involved counseling and coordination of care.
Anticipated Discharge: Within 24 hours
Subjective/Interval History
-
Date of Service: October 23, 2023
New onset ulceration rash involving left side of patients head dermal distribution, ulceration noted inside left cheek mouth as well. patient reports tenderness in associate area. small ulcerations noted around patient's left eye. Patient also
reporting vision disturbances.
Objective Data
-
Labs:
Laboratory Results
10/23/23
04:59
WBC 6.2
Hgb 13.1
Hct 37.5
Plt Count 205
Sodium 137
Potassium 3.7
Chloride 109 H
Carbon Dioxide 23
BUN 5 L
Creatinine 0.3 L
Glucose 96
Calcium 8.8
Vital Signs:
Vital Signs
Temp Pulse Resp BP Pulse Ox
99.0 F 77 19 145/76 94
10/22/23 23:34 10/22/23 23:34 10/22/23 23:34 10/22/23 23:34 10/22/23 23:34
I&O
05/03/24 05/04/24 05/05/24
06:59 06:59 06:59
Intake Total 900 / 900 660 / 660
Output Total 900 / 900 2835 / 2835
Balance 0 / 0 -2175 / -217
[2023-10-23 07:35] VITALS: BP 123/69
[2023-10-23] MEDS: LYRICA 200 MG PO ×2 (08:16→20:38)
[2023-10-23] MEDS: PROTONIX 40 MG PO (08:16)
[2023-10-23] MEDS: MS CONTIN (EXTENDED RELEASE) 15 MG PO ×2 (08:17→20:38)
[2023-10-23] MEDS: VALTREX 1000 MG PO ×3 (08:58→21:38)
--- NOTE | 2023-10-23 09:19 | W.PN.CRS1 ---
Addendum entered and electronically signed by Randy Fulton MD 10/23/23 14:19:
I saw and examined the patient.
The PA's note was reviewed and I agree with the note.
Comment:
Seen in am with CAKE MAKER.
No abdominal or anal complaints. Had BM overnight and tolerating po.
Main complaint is left sided head pain---rash noted there too.
Vitals and lab fine.
Abdomen and perianal area fine.
Left scalp with erythema--new--?shingles.
Diet advanced to LRD.
ID consult and input noted--c/w shingles. Plans are discharge early am with evaluation in Dr. Senior's office tomorrow am.
Original Note:
Today's Communication / Plan
-
ID eval
Dispo planning
Assessment/Plan
-
73 yo female with h/o rectal prolapse who is POD #3 Altemeier procedure/posterior levatorplasty
AFVSS
Labs stable
WC bound at home, transfers with slide board
Voiding well
New facial rash, ? herpetic. Crosses midline. Discussed with hospitalist, ID to evaluate
-- Advance to LRD
-- Trend labs
-- PT following, plan to return home upon d/c
-- Tylenol/Toradol scheduled. Morphine 15mg XR BID prn PO oxycodone. PRN dilaudid for breakthrough pain.
-- DVT prophylaxis: TEDS/SCDS, Lovenox added.
-- Appreciate hospitalist following with us
Discharge planning underway. D/C was planned once tolerating diet later today vs tomorrow; however, will d/w ID/Medicine whether she may need to stay for management of developing facial rash
Subjective Data
Procedure
10/20/2023- 1) Altemeier procedure (perineal rectosigmoidectomy) 2) posterior levatoroplasty
Subjective Data
Date of Service: October 23, 2023
Patient seen and examined at bedside. Denies n/v. Tolerating diet. Passing flatus/stools. Denies abdominal pain. Facial rash which is painful developed overnight.
Objective Data
-
Vital Signs
Temp Pulse Resp BP Pulse Ox
98.8 F 87 17 123/69 95
10/23/23 07:35 10/23/23 07:35 10/23/23 07:35 10/23/23 07:35 10/23/23 07:35
Intake & Output
10/22/23 10/23/23 10/24/23
06:59 06:59 06:59
Intake Total 660 / 660 480 / 480
Output Total 2835 / 2835 550 / 550
Balance -2175 / -2175 -70 / -70
Intake:
Oral fluids 660 / 660 480 / 480
Output:
Urine, Paredes 1875 / 1875
Urine, Voided 960 / 960 550 / 550
Other:
Number of approximated MODERATE 1
amounts of urine
Number of approximated LARGE 1
amounts of urine
Lab Results
10/23/23 04:59
10/23/23 04:59
Physical Exam
-
General: No Acute Distress and AOx3
Abdomen: Soft, Non Distended and Non Tender
Skin: Warm, Dry and Other (rash from left cephalic scalp toward eye and down face to the right neck)
Incision: Clear, Dry, Intact
--- NOTE | 2023-10-23 10:51 | CON.ID ---
Addendum entered and electronically signed by Graciela Ventura MD 10/23/23 11:53:
Dr Coreas agrees to see patient tomorrow - updated dc instruction - notified patient
Will start prednisolone drops 1% TID until she can be evaluated
Continue valtrex
Original Note:
Consultation
-
Date/Time Consultation Requested: 10/23/23 8:35
Date/Time Consultation Performed: 10/23/23 10:51
Requesting Provider: Dr Renteria
Performing Provider: Dr Ventura
Reason for Consultation: Zoster
Chief Complaint / Past History
Chief Complaint
rectal prolapse
History of Present Illness
Ms Middleton is a 73 year old female with rectal prolapse, chronic hypotension. She reports bleeding and mucous from the prolapse since may. No constipation, straining or pelvic floor issues. She was admitted for elective repair and 10/19 underwent
Altemeier procedure (perineal rectosigmoidectomy) and posterior levatoroplasty which was uncomplicated, post operatively she has developed a rash of the L cheak/forehead consistent with zoster. Started on valtrex. ID is consulted for assistance
with management. Doesnt recall having chicken pox as a child
Since arrival afebrile, bp stable without leukocytosis, cr stable, now with new, unilateral, painful, pustlar rash in v1 distribution without red eye but reporting mildly blurry vision, occular pain, started on valtrex.
Past History
Additional Past Medical History:
chronic pain, scoliosis, DM II, depression, anxiety, neuropathy, NM
Additional Past Surgical History:
closed reduction of b/l proximal tibia fractures, lumbar discectomy, right piriformis release, spinal stimulator implant
Allergy History:
ciprofloxacin [From Cipro] Allergy (Verified 08/29/21 17:23)
Unknown
Penicillins Allergy (Verified 08/29/21 17:23)
Anaphylaxis
Medications Reviewed: Yes
Social History
Tobacco: Non-Smoker
Alcohol: None
Drug: None
Family History
Family History: Not Pertinent
Review of Systems
Review of Systems
General: Fever
All systems: All other systems were reviewed and were negative
Vital Signs
Temp Pulse Resp BP Pulse Ox
98.8 F 87 17 123/69 95
10/23/23 07:35 10/23/23 07:35 10/23/23 07:35 10/23/23 07:35 10/23/23 07:35
Physical Exam
Physical Exam
Constitutional: No Acute Distress
Eyes: Other (no significant erythema of the eye)
Cardiovascular: Regular Rate and S1/S2; Negative Murmur or Rub
Pulmonary: Clear and Symmetric; Negative Wheezes, Rales or Rhonchi
Gastrointestinal: Soft, Non Tender, Non Distended and Normal Bowel Sounds
Skin: Warm, Dry and Rash (v1 distribution, red, macular, few ruptured vesicles); Negative Jaundice
Lab / Diagnostic Study Results
10/23/23 04:59
10/23/23 04:59
Abs Immat Gran (auto) 0.0 10^3/uL (0-0.05) 10/21/23 05:01
Absolute Neuts (auto) 7.7 10^3/uL (1.4-6.5) H 10/21/23 05:01
Absolute Lymphs (auto) 0.5 10^3/uL (1.2-3.4) L 10/21/23 05:01
Absolute Monos (auto) 0.7 10^3/uL (0.1-0.6) H 10/21/23 05:01
Absolute Basos (auto) 0.0 10^3/uL (0-0.2) 10/21/23 05:01
Immature Gran % 0.3 % (0-0.5) 10/21/23 05:01
Neutrophils % 86.3 % (42.2-75.2) H 10/21/23 05:01
Lymphocytes % 5.4 % (20.5-51.1) L 10/21/23 05:01
Monocytes % 7.8 % (1.7-9.3) 10/21/23 05:01
Eosinophils % 0.0 % (0-6) 10/21/23 05:01
Basophils % 0.2 % (0-2) 10/21/23 05:01
PT 13.3 Sec (11.4-14.6) 10/18/23 13:45
INR 1.03 10/18/23 13:45
Assessment / Plan
Herpes Zoster
- localized disease, lesions can be covered - standard precautions
- recommend ophthalmology evaluation; if not available inpatient consider discharge with same or next day follow up with ophthalmology if no other compelling need to remain hospitalized
- continue oral valtrex at current dose x 10 days
- in her age group exposure to VZV was nearly universal; serologies would take 4-5 days to result and would not change room attendant
- follow clinically
Care Review
Plan reviewed with: Physician (Dr Renteria - yolis valdes, urgent)
[2023-10-23 11:45] VITALS: BP 123/60
--- NOTE | 2023-10-23 11:48 | PTCARENOTE ---
Pt transferred to to 2129, report given to lux DIAZ no questions
--- NOTE | 2023-10-23 11:48 | PTCARENOTE ---
pt transferred to room [address] [place] [address] due to new shingles diagnosis. Oriented to her new room, complaining of headache, see AUG.
[2023-10-23] MEDS: TORADOL 15 MG IV ×2 (11:58→23:39)
--- NOTE | 2023-10-23 13:19 | CM ---
CM following re: discharge planning.
Reviewed pt's chart, met with pt.
Discharge order for tomorrow noted. Pt is aware, expressed her agreement and pt stated her son will transport her home. IMM reviewed placed on chart, pt has a copy.
PT and OT evaluations noted - home PT/OT vs no needs recommended. Pt is aware and she stated she is w/c bound and had [facility] and pt is requested to have [facility] upon the discharge. A referral to [facility] made.
Please fax discharge instructions to [facility] at [phone]
D/C plan: home tomorrow 10/24/23 with [facility] and family support. Son to transport.
No other discharge needs identified.
[2023-10-23 15:08] VITALS: BP 147/75
[2023-10-23] MEDS: PRED FORTE 1% EYE DROPS 1 DROP LEFT EYE ×2 (16:57→21:39)
[2023-10-23] MEDS: LOVENOX 40 MG SC (17:05)
[2023-10-23] MEDS: TYLENOL PO (17:06)
[2023-10-23] MEDS: LIPITOR 10 MG PO (21:38)
[2023-10-23] MEDS: ARICEPT 10 MG PO (21:38)
[2023-10-23 23:35] VITALS: BP 141/72
[2023-10-24] MEDS: ROXICODONE 5 MG PO (04:29)
[2023-10-24] MEDS: TYLENOL PO (05:51)
[2023-10-24] MEDS: TORADOL 15 MG IV (05:51)
[2023-10-24 06:49] LABS: Hematocrit 39.6 % (37.0-47.0); Hemoglobin 13.1 g/dL (12.0-16.0); Mean Corp Hgb Conc. 33.1 g/dL (33.0-37.0); Mean Corpuscular Hgb 28.3 pg (27.0-31.0); Mean Corpuscular Volume 85.5 fL (81.0-99.0); Platelet Count 215 10^3/uL (130-400); Red Blood Cell Count 4.63 10^6/uL (4.20-5.40); Red Cell Dist. Width 13.5 % (11.5-14.5); White Blood Cell Count 5.8 10^3/uL (4.8-10.8)
[2023-10-24 07:05] LABS: Blood Urea Nitrogen 8 mg/dl (7-17); Calcium 9.1 mg/dl (8.4-10.2); Carbon Dioxide 25 mmol/L (22-30); Chloride 109 mmol/L (98-107); Estimated Creatinine Clearance 81 ml/min; Glucose 102 mg/dl (70-99); Magnesium 2.1 mg/dl (1.6-2.3); Phosphorus 4.2 mg/dl (2.5-4.5); Potassium 3.7 mmol/L (3.5-5.1); Sodium 139 mmol/L (135-145); eGFR > 60.00
[2023-10-24 07:58] VITALS: BP 141/72
--- NOTE | 2023-10-24 09:47 | W.PN.CRS1 ---
Today's Communication / Plan
-
d/c
Assessment/Plan
-
73 yo female with h/o rectal prolapse who is POD #4 Altemeier procedure/posterior levatorplasty
AFVSS
Labs stable
WC bound at home, transfers with slide board
1. Continue LRD
2. PT following, plan to return home upon d/c
3. Tylenol/Toradol scheduled. Morphine 15mg XR BID prn PO oxycodone. PRN dilaudid for breakthrough pain.
4. DVT prophylaxis: TEDS/SCDS, Lovenox.
5. Appreciate hospitalist/ID.
6. Plan is for d/c today. She will follow up with Par[facility] zelaya for an appointment at 12:15. Discussed with patient. All d/c instructions discussed and all questions answered.
Subjective Data
Procedure
10/20/2023- 1) Altemeier procedure (perineal rectosigmoidectomy) 2) posterior levatoroplasty
Subjective Data
Date of Service: October 24, 2023
Patient states she is having bowel movements. She denies nausea. She is tolerating a diet. She has no complaints.
Objective Data
-
Vital Signs
Temp Pulse Resp BP Pulse Ox
97.9 F 72 16 141/72 94
10/24/23 07:58 10/24/23 07:58 10/24/23 07:58 10/24/23 07:58 10/24/23 07:58
Intake & Output
10/23/23 10/24/23 10/25/23
06:59 06:59 06:59
Intake Total 480 / 480 420 / 420
Output Total 550 / 550 750 / 750
Balance -70 / -70 -330 / -330
Intake:
Oral fluids 480 / 480 420 / 420
Output:
Urine, Voided 550 / 550 750 / 750
Other:
Number of approximated MODERATE 1
amounts of urine
Number of approximated LARGE 1 2
amounts of urine
Lab Results
10/24/23 05:38
10/24/23 05:38
Physical Exam
-
General: No Acute Distress and AOx3
Abdomen: Soft, Non Distended and Non Tender
Skin: Warm and Dry
Incision: Clear, Dry, Intact
--- NOTE | 2023-10-24 09:52 | W.DS.TRANS ---
DC Summary - Leather Whitener
-
Discharge Instructions:
Discharge Diagnosis/Procedures rectal prolapse with altimeter procedure; zoster
opathlmicus
Diet Low Fiber,As tolerated
Activity No strenuous activity
Additional Activity No lifting over 10lbs (gallon of milk)
Driving Restrictions Not until seen by your Dr
Bathing Restrictions OK to Shower
Instructions:
Stand-Alone Forms:
Changes to Home Medications: Yes
Discharge Medications:
DC Medications w/original date entered in [facility]
magnesium oxide 400 mg PO DAILY Supplement 08/29/21
pregabalin 200 mg capsule (Lyrica) 200 mg PO BID Neurological Condition #6 caps 09/01/21
atorvastatin 10 mg tablet 10 mg PO HS High Cholesterol 10/18/23
donepezil 10 mg tablet 10 mg PO HS Neurological Condition 10/18/23
midodrine 2.5 mg tablet 2.5 mg PO TID Blood Pressure 10/18/23
morphine 15 mg tablet,extended release 15 mg PO BID Pain 10/18/23
oxycodone 5 mg tablet 5 mg PO Q4HPRN PRN moderate to severe pain 10/18/23
vortioxetine 5 mg tablet (Trintellix) 5 mg PO DAILY Mental Health/Anxiety 10/18/23
prednisolone acetate 1 % eye drops,suspension 1 drp LEFT EYE TID 7 days #5 mL 10/23/23
valacyclovir 500 mg tablet 1,000 mg (2 x 500 mg) PO TID #27 tabs 10/23/23
Home Medication Changes
prednisolone acetate 1 % eye drops,suspension 1 drp LEFT EYE TID 7 days #5 mL 10/23/23
valacyclovir 500 mg tablet 1,000 mg (2 x 500 mg) PO TID #27 tabs 10/23/23
Pending Results: Yes
Additional Pending Results:
OR pathology
--- NOTE | 2023-10-24 09:53 | W.DCSUMMARY ---
Discharge Summary
Discharge Data
Date of Admission: 10/18/23
Date of Discharge: 10/24/23
-
Pending Results: Yes
Additional Pending Results:
OR pathology
Hospital Course
73-year-old female presents for a scheduled perineal rectosigmoidectomy and posterior levatorplasty due to rectal prolapse and fecal incontinence by Dr. Fulton on 10/20/2023. She had been admitted 2 days prior due to needing to bowel prep in the
hospital and she required a colonoscopy 1 day prior to surgery. Postoperatively she was on the medical surgical floor. Lovenox was started for DVT prophylaxis. She was out of bed to a chair with physical therapy (she is wheelchair-bound). Her
diet was eventually advanced to a low residue diet. On postop day 3 it was noted that she had a new facial rash that across her midline and is consistent with shingles. Infectious disease saw the patient in consult then secured an ophthalmology
appointment with her the following day. She was on her home dose of Valtrex and prescribed prednisone eyedrops. On postop day 4 the patient was discharged home. All discharge instructions were discussed with the patient including medication
details and follow-up. OR pathology was pending at the time of discharge. Upon discharge she is to have an appointment with [facility] at 12:15.
Discharge Plan
-
Patient Disposition: Home (Routine Discharge)
Discharge Diagnosis/Procedures: rectal prolapse with altimeter procedure; zoster opathlmicus
Condition: Good
Diet: As tolerated and Low Fiber
Activity: No strenuous activity
Additional Activity: No lifting over 10lbs (gallon of milk)
Driving Restrictions: Not until seen by your Dr
Bathing Restrictions: OK to Shower
Activity Restrictions/Additional Instructions:
Wound Care Instructions
R dorsal 2nd toe ulcer-clean with saline, honey gel, cover with silicone foam dressing secured with band-aid or paper tape, change daily and prn drainage (add alginate prior to foam prn large amount of drainage).
Elevate heels off bed with pillows.
Follow up at your wound care center or wound care center call for an appointment.
Instructions: Low Fiber Diet
Referrals:
Randy Fulton MD [Active] - 11/04/23 10:15 am
Christopher Senior MD [Active] - Immediately
Christopher Braswell DO [Family Provider] -
Additional Discharge Medication Instructions: See Dr Juan at [address] [facility] , [place] [id number] today at 12:15; he is expecting you at one of those times. His office number is .
Tylenol or Ibuprofen as needed for pain. Maximum dose of Tylenol is 4,000mg in 24 hours. Maximum dose of Ibuprofen is 3,200mg in 24 hours.
Prescriptions:
New
prednisolone acetate 1 % drops,suspension
1 drp LEFT EYE TID 7 Days Qty: 5 0RF
valacyclovir 500 mg Tablet
1,000 mg PO TID Qty: 27 0RF
Continued
magnesium oxide 400 MG tablet
400 mg PO DAILY
pregabalin [Lyrica] 200 MG capsule
200 mg PO BID Qty: 6 0RF
atorvastatin 10 mg Tablet
10 mg PO HS
donepezil 10 mg Tablet
10 mg PO HS
midodrine 2.5 mg Tablet
2.5 mg PO TID
Trintellix 5 mg Tablet
5 mg PO DAILY
morphine 15 MG tablet extended release
15 mg PO BID
oxycodone 5 MG tablet
5 mg PO Q4HPRN PRN (Reason: moderate to severe pain)
Discharge Orders:
Discharge Patient (As Directed); Ordered 10/24/23
Ordered By: Carmelita Kamara
Discharge Date and Time
Print Language: WELSH
[2023-10-24] MEDS: MS CONTIN (EXTENDED RELEASE) 15 MG PO (10:53)
[2023-10-24] MEDS: PROTONIX 40 MG PO (10:53)
[2023-10-24] MEDS: VALTREX 1000 MG PO (10:53)
[2023-10-24] MEDS: LYRICA 200 MG PO (10:53)
[2023-10-24] MEDS: PRED FORTE 1% EYE DROPS 1 DROP LEFT EYE (10:54)
--- NOTE | 2023-10-24 11:41 | CM ---
Addendum entered by Cristobal Baptiste 10/24/23 11:45:
[facility] FAX # [phone]
Original Note:
Patient has been medically cleared for discharge to home [facility]. [facility] liaison notified. Son transporting to eye appointment and then home. Son will stay with patient for a few days.
== END 2023-10-24 11:42 | disposition home health service (06) | DRG 330 ==
LOC: 2 NORTH 13:23
PROVIDERS: Physician Assistant; ADMITTING PHYSICIAN Surgery; CONSULT PHYSICIAN Internal Medicine; CONSULT PHYSICIAN Student in an Organized Health Care Education/Training Program; FAMILY PHYSICIAN Student in an Organized Health Care Education/Training Program
PROC: 0WQNXZZ Repair Female Perineum, External Approach (ICD-10-PCS; 2023-10-20)
PROC: 0DBP0ZZ Excision of Rectum, Open Approach (ICD-10-PCS; 2023-10-20)
PROC: 0DBN0ZZ Excision of Sigmoid Colon, Open Approach (ICD-10-PCS; 2023-10-20)
DX: K62.3 Rectal prolapse (principal); F11.20 Opioid dependence, uncomplicated; K62.5 Hemorrhage of anus and rectum; I95.89 Other hypotension; G89.29 Other chronic pain; Z87.891 Personal history of nicotine dependence; E11.40 Type 2 diabetes mellitus with diabetic neuropathy, unspecified; F32.A Depression, unspecified; F41.9 Anxiety disorder, unspecified; E87.6 Hypokalemia; B02.9 Zoster without complications; Z99.3 Dependence on wheelchair; R19.5 Other fecal abnormalities
CPT/HCPCS: 88305; 88307; 80048; 82962; 83036; 83735; 84100; 85025; 85027; 85610; 85730; 86850; 86900; 86901; 93005; 97162; J1335